=== PATIENT | male | born 1985 | race American Indian/Alaskan Native ===

== ENCOUNTER 2017-12-18 14:28 | Emergency (ER) | payer MEDICAID ==
[~2017-12-18] VITALS: Ht 180.3 cm; Wt 104.2 kg
[2017-12-18 14:42] VITALS: BP 143/72
== END 2017-12-18 16:29 | disposition home or self-care (01) ==
LOC: ER 14:28
DX: F19.10 Other psychoactive substance abuse, uncomplicated (principal); F10.10 Alcohol abuse, uncomplicated; F11.10 Opioid abuse, uncomplicated; Z88.1 Allergy status to other antibiotic agents; Z88.6 Allergy status to analgesic agent; Z88.8 Allergy status to other drugs, medicaments and biological substances; Z79.899 Other long term (current) drug therapy; Z56.0 Unemployment, unspecified
CPT/HCPCS: 99281

== ENCOUNTER 2021-07-13 19:23 | Emergency (ER) | payer MEDICAID ==
[~2021-07-13] VITALS: Ht 177.8 cm; Wt 97.7 kg
[2021-07-13 20:10] LABS: BASOPHILS # (AUTO) 0.1 X10'3 (0-0.2); BASOPHILS % (AUTO) 0.5 % (0-1); EOSINOPHILS # (AUTO) 0.1 X10'3 (0-0.9); EOSINOPHILS % (AUTO) 0.5 % (0-6); HEMATOCRIT 41.1 % (42.0-52.0); HEMOGLOBIN 14.1 g/dl (14.0-17.9); LYMPHOCYTES # (AUTO) 1.6 X10'3 (1.1-4.8); LYMPHOCYTES % (AUTO) 14.5 % (21-51); MEAN CORPUSCULAR HGB CONC 34.3 g/dL (33.0-36.5); MEAN CORPUSCULAR VOLUME 87.5 FL (78-98); MEAN PLATELET VOLUME 8.2 FL (7.4-10.4); MONOCYTES # (AUTO) 0.9 X10'3 (0-0.9); MONOCYTES % (AUTO) 7.8 % (2-12); NEUTROPHILS # (AUTO) 8.4 X10'3 (1.8-7.7); NEUTROPHILS % (AUTO) 76.7 % (42-75); PLATELET COUNT 297 X10'3 (140-440); RED CELL DISTRIBUTION WIDTH 12.6 % (11.5-14.5)
[2021-07-13 20:24] LABS: ALANINE AMINOTRANSFERASE 52 U/L (12-78); ALBUMIN 4.2 G/DL (3.4-5.0); ALBUMIN/GLOBULIN RATIO 1.4 (1.1-1.5); ALKALINE PHOSPHATASE 69 IU/L (46-116); ANION GAP 13 (8-16); ASPARTATE AMINO TRANSFERASE 52 U/L (10-37); BILIRUBIN,TOTAL 0.3 MG/DL (0.1-1.0); BLOOD UREA NITROGEN 30 MG/DL (7-18); BUN/CREATININE RATIO 22.9 (5.4-32.0); CALCIUM 8.7 MG/DL (8.5-10.1); CHLORIDE 109 MMOL/L (99-107); CREATININE 1.31 MG/DL (0.60-1.10); GLUCOSE 82 MG/DL (70-104); POTASSIUM 3.8 MMOL/L (3.5-5.1); SODIUM 144 MMOL/L (135-145); TOTAL CARBON DIOXIDE 22.2 MMOL/L (24-32); TOTAL PROTEIN 7.3 G/DL (6.4-8.2); eGFR 62 ML/MIN
[2021-07-13] MEDS ORDERED: normal saline 1000ml 1,000 ML IV ONE (20:40)
[2021-07-13 21:14] LABS: CLARITY,URINE CLOUDY (Clear); COLOR,URINE YELLOW (Yellow); GLUCOSE, URINE NEGATIVE (Neg); KETONES,URINE NEGATIVE (Neg); LEUKOCYTE ESTERASE ,URINE NEGATIVE (Neg); NITRITES, URINE NEGATIVE (Neg); OCCULT BLOOD,URINE NEGATIVE (Neg); PH,URINE 7.5 (4.8-8.0); PROTEIN,URINE NEGATIVE (Neg); URINE AMPHETAMINE SCREEN NEGATIVE (Neg); URINE BARBITUATE SCREEN NEGATIVE (Neg); URINE BENZODIAZEPINES SCREEN NEGATIVE (Neg); URINE CANNABINOID SCREEN NEGATIVE (Neg); URINE COCAINE SCREEN NEGATIVE (Neg); URINE METHADONE SCREEN NEGATIVE (Neg); URINE OPIATE SCREEN NEGATIVE (Neg); URINE PHENCYCLIDINE SCREEN NEGATIVE (Neg); UROBILINOGEN,URINE 0.2 E.U/dL (0.2-1.0)
[2021-07-13 21:15] LABS: UA COLLECTION TYPE URINAL
[2021-07-13 21:16] LABS: CREATINE KINASE 2192 U/L (39-308)
[2021-07-13 21:27] LABS: BACTERIA,URINE NONE SEEN /HPF (Neg); RBC,URINE NONE SEEN /HPF (0-2); SQUAMOUS EPITHELIAL CELL,UR FEW /LPF (FEW); WBC,URINE NONE SEEN /HPF (0-4)
[2021-07-13 21:28] LABS: AMORPHOUS PHOSPHATES 3+; MUCUS STRANDS FEW /LPF (Neg)
[2021-07-13 22:15] VITALS: BP 117/70
== END 2021-07-13 22:18 | disposition home or self-care (01) ==
LOC: ER 19:25
DX: R55 Syncope and collapse (principal); E86.0 Dehydration; F41.9 Anxiety disorder, unspecified; F11.90 Opioid use, unspecified, uncomplicated; Z98.890 Other specified postprocedural states; Z72.89 Other problems related to lifestyle; Z56.0 Unemployment, unspecified; Z88.1 Allergy status to other antibiotic agents; Z88.8 Allergy status to other drugs, medicaments and biological substances; Z88.6 Allergy status to analgesic agent
CPT/HCPCS: 36415; 71045; 80053; 80305; 81001; 82550; 83880; 84484; 85025; 93005; 96360; 99285; J7030

== ENCOUNTER 2022-05-25 00:49 | Emergency (ER) | payer MEDICAID ==
[~2022-05-25] VITALS: Ht 177.8 cm; Wt 106.8 kg
[2022-05-25 00:58] VITALS: BP 134/91
== END 2022-05-25 03:12 | disposition left against medical advice (07) ==
LOC: ER 00:49
DX: F10.239 Alcohol dependence with withdrawal, unspecified (principal); Z53.21 Procedure and treatment not carried out due to patient leaving prior to being seen by health care provider; Y90.9 Presence of alcohol in blood, level not specified

== ENCOUNTER 2024-07-24 12:46 | Inpatient (IN) | payer MEDICAID ==
[~2024-07-24] VITALS: Ht 177.8 cm; Wt 92.5 kg
[2024-07-24] MEDS ORDERED: LORazepam 2 mg/ml vial IV ONE (13:45)
[2024-07-24] MEDS ORDERED: ONDA-104 PO (13:51)
[2024-07-24] MEDS ORDERED: BUPR-561 PO (13:51)
[2024-07-24] MEDS ORDERED: SEMA1PEN5 (13:51)
[2024-07-24] MEDS ORDERED: FAMO20TA8 PO (13:51)
[2024-07-24] MEDS ORDERED: TADA-54 PO (13:51)
[2024-07-24] MEDS: normal saline 1000ml 1,000 ML IV ONE ×3 (13:59→20:21)
[2024-07-24] MEDS: diazepam inj 5 MG/ML inj. IV ONE ×2 (14:10→15:24)
[2024-07-24 14:48] LABS: BASOPHILS % (AUTO) 0.5 % (0-1); EOSINOPHILS # (AUTO) 0.1 X10'3 (0-0.9); EOSINOPHILS % (AUTO) 1.2 % (0-6); HEMATOCRIT 45.4 % (42.0-52.0); HEMOGLOBIN 15.6 g/dl (14.0-17.9); LYMPHOCYTES # (AUTO) 1.4 X10'3 (1.1-4.8); LYMPHOCYTES % (AUTO) 24.9 % (21-51); MEAN CORPUSCULAR HEMOGLOBIN 30.7 PG (27.0-31.0); MEAN CORPUSCULAR HGB CONC 34.4 g/dL (33.0-36.5); MEAN CORPUSCULAR VOLUME 89.3 FL (78-98); MEAN PLATELET VOLUME 8.1 FL (7.4-10.4); MONOCYTES # (AUTO) 0.3 X10'3 (0-0.9); MONOCYTES % (AUTO) 6.1 % (2-12); NEUTROPHILS # (AUTO) 3.7 X10'3 (1.8-7.7); NEUTROPHILS % (AUTO) 67.3 % (42-75); PLATELET COUNT 297 X10'3 (140-440); RED BLOOD COUNT 5.08 X10'6 (4.70-6.10); RED CELL DISTRIBUTION WIDTH 12.6 % (11.5-14.5); WHITE BLOOD COUNT 5.5 X10'3 (4.5-11.0)
[2024-07-24 15:07] LABS: ALANINE AMINOTRANSFERASE 52 U/L (12-78); ALBUMIN 4.1 G/DL (3.4-5.0); ALKALINE PHOSPHATASE 94 IU/L (46-116); ANION GAP 11 (8-16); ASPARTATE AMINO TRANSFERASE 60 U/L (10-37); BILIRUBIN,DIRECT 0.1 MG/DL (0-0.3); BILIRUBIN,TOTAL 0.4 MG/DL (0.1-1.0); BLOOD UREA NITROGEN 8 MG/DL (7-18); BUN/CREATININE RATIO 9.2 (10.0-20.0); CALCIUM 8.9 MG/DL (8.5-10.1); CHLORIDE 108 MMOL/L (99-107); CREATININE 0.87 MG/DL (0.60-1.10); ETHANOL 122 MG/DL (<10); GLUCOSE 84 MG/DL (70-104); LIPASE 140 U/L (16-77); MAGNESIUM 1.9 MG/DL (1.5-2.4); POTASSIUM 3.6 MMOL/L (3.5-5.1); SODIUM 143 MMOL/L (135-145); TOTAL PROTEIN 8.1 G/DL (6.4-8.2); eCRCL 118 ML/MIN; eGFR > 90 ML/MIN
[2024-07-24] MEDS: ondansetron/PF 4mg/2ml inj IV ONE (15:24)
[2024-07-24] MEDS: morphine 4 MG/ML inj SYRINge IV ONE ×3 (15:25→17:49)
[2024-07-24] MEDS ORDERED: iohexol 300mg/ml 100ml inj. ONE (16:18)
[2024-07-24] MEDS: proCHLORperazine 10 MG/2 ml inj IV ONE (17:47)
[2024-07-24] MEDS: diphenhydrAMINE 50 mg/ml inj IV ONE (17:48)
[2024-07-24] MEDS ORDERED: LORazepam 2 mg/ml vial IV PRN ×2 (18:10)
[2024-07-24] MEDS ORDERED: haloperidol lactate 5mg/ml inj IM PRN (18:10)
[2024-07-24] MEDS ORDERED: magnesium sulf-water 4G/100mL 100 ML IV PRN (18:10)
[2024-07-24] MEDS ORDERED: acetaminophen 325mg tablet PO PRN (18:10)
[2024-07-24] MEDS ORDERED: mag hydrox/Alum hydrox/simeth 30ml oral suspension PO PRN (18:10)
[2024-07-24] MEDS ORDERED: potassium Cl 20 mEq SR tablet PO PRN ×2 (18:10)
[2024-07-24] MEDS ORDERED: potassium Cl 40MEQ/1/2NS 520ml 520 ML IV PRN (18:10)
[2024-07-24] MEDS ORDERED: dextrose 50%-water 50ml dispensing syringe IV PRN (18:10)
[2024-07-24] MEDS ORDERED: magnesium sulf-water 2g/50mL 50 ML IV PRN (18:10)
[2024-07-24] MEDS ORDERED: ondansetron/PF 4mg/2ml inj IV PRN (18:10)
[2024-07-24] MEDS ORDERED: magnesium hydroxide 30ml (MOM) UD suspension PO PRN (18:10)
[2024-07-24 18:36] LABS: URINE AMPHETAMINE SCREEN NEGATIVE (Neg); URINE BARBITUATE SCREEN NEGATIVE (Neg); URINE BENZODIAZEPINES SCREEN NEGATIVE (Neg); URINE CANNABINOID SCREEN NEGATIVE (Neg); URINE COCAINE SCREEN NEGATIVE (Neg); URINE METHADONE SCREEN NEGATIVE (Neg); URINE OPIATE SCREEN POSITIVE (Neg); URINE PHENCYCLIDINE SCREEN NEGATIVE (Neg)
[2024-07-24] MEDS: thiamine 100mg/ml 2ml inj. IV SCH (18:45)
[2024-07-24] MEDS: morphine 2 MG/ML inj. syringe IV PRN ×2 (18:47→23:19)
[2024-07-24 19:39] LABS: PROTHROMBIN TIME 10.5 SECONDS (9.0-12.0)
[2024-07-24] MEDS: K and/or MAG REPLACEMENT MC SCH (20:00)
[2024-07-24] MEDS: heparin, porcine 5000 units/ml vial SQ SCH (20:00)
[2024-07-24] MEDS: folic acid 1mg/0.2ml inj IV SCH (20:10)
[2024-07-24] MEDS: ringers solution, lacted 1,000 ML IV SCH (20:22)
[2024-07-24] MEDS: HYDROmorphone 1 mg/ml syringe IV ONE (20:22)
[2024-07-24] MEDS: pantoprazole 40 MG vial IV SCH (20:23)
[2024-07-24 21:13] LABS: BILIRUBIN,URINE NEGATIVE (Neg); CLARITY,URINE CLEAR (Clear); COLOR,URINE YELLOW (Yellow); GLUCOSE, URINE NEGATIVE (Neg); KETONES,URINE NEGATIVE (Neg); LEUKOCYTE ESTERASE ,URINE NEGATIVE (Neg); NITRITES, URINE NEGATIVE (Neg); OCCULT BLOOD,URINE NEGATIVE (Neg); PROTEIN,URINE NEGATIVE (Neg); UROBILINOGEN,URINE 0.2 E.U/dL (0.2-1.0)
[2024-07-24 21:20] LABS: UA COLLECTION TYPE URINAL
[2024-07-24 21:42] VITALS: BP 134/86; PULSE 106; RESP 22; TEMP 98.9; O2SAT 99
[2024-07-24] MEDS: LORazepam 1 MG tablet PO PRN (23:03)
[2024-07-25 06:00] VITALS: BP 134/86; PULSE 77; RESP 9; TEMP 98.9; O2SAT 99
[2024-07-25 06:57] LABS: BASOPHILS % (AUTO) 0.5 % (0-1); EOSINOPHILS # (AUTO) 0.1 X10'3 (0-0.9); HEMATOCRIT 37.7 % (42.0-52.0); LYMPHOCYTES # (AUTO) 1.2 X10'3 (1.1-4.8); LYMPHOCYTES % (AUTO) 20.6 % (21-51); MEAN CORPUSCULAR HEMOGLOBIN 30.8 PG (27.0-31.0); MEAN CORPUSCULAR HGB CONC 34.5 g/dL (33.0-36.5); MEAN CORPUSCULAR VOLUME 89.3 FL (78-98); MEAN PLATELET VOLUME 8.3 FL (7.4-10.4); MONOCYTES # (AUTO) 0.4 X10'3 (0-0.9); MONOCYTES % (AUTO) 6.4 % (2-12); NEUTROPHILS % (AUTO) 70.5 % (42-75); PLATELET COUNT 198 X10'3 (140-440); RED BLOOD COUNT 4.22 X10'6 (4.70-6.10); RED CELL DISTRIBUTION WIDTH 12.6 % (11.5-14.5); WHITE BLOOD COUNT 5.7 X10'3 (4.5-11.0)
[2024-07-25 07:09] LABS: ALANINE AMINOTRANSFERASE 46 U/L (12-78); ALBUMIN 3.1 G/DL (3.4-5.0); ALKALINE PHOSPHATASE 88 IU/L (46-116); ANION GAP 4 (8-16); ASPARTATE AMINO TRANSFERASE 45 U/L (10-37); BILIRUBIN,TOTAL 1.1 MG/DL (0.1-1.0); BLOOD UREA NITROGEN 7 MG/DL (7-18); BUN/CREATININE RATIO 8.5 (10.0-20.0); CALCIUM 7.9 MG/DL (8.5-10.1); CHLORIDE 105 MMOL/L (99-107); CHOL/HDL RATIO 2.4 (0.00-4.99); CHOLESTEROL 137 MG/DL (0-200); CREATININE 0.82 MG/DL (0.60-1.10); GLUCOSE 83 MG/DL (70-104); HDL CHOLESTEROL 58 MG/DL (35-60); LDL CHOLESTEROL 67 MG/DL (50-100); LIPASE 71 U/L (16-77); MAGNESIUM 1.4 MG/DL (1.5-2.4); POTASSIUM 3.5 MMOL/L (3.5-5.1); SODIUM 140 MMOL/L (135-145); TOTAL CARBON DIOXIDE 30.7 MMOL/L (24-32); TOTAL PROTEIN 6.2 G/DL (6.4-8.2); TRIGLYCERIDES 76 MG/DL (20-135); eCRCL 125 ML/MIN; eGFR > 90 ML/MIN
[2024-07-25] MEDS ORDERED: HYDROcodone/acetaminophen 10/325mg tab PO PRN (08:40)
[2024-07-25] MEDS: BUPROPION HCL 150MG XL 24 HR 150 MG TAB PO SCH (09:42)
[2024-07-25] MEDS: HYDROcodone/acetaminophen 10/325mg tab PO ONE (09:43)
[2024-07-25 11:00] VITALS: BP 128/79; PULSE 77; RESP 16; TEMP 97.2; O2SAT 99
[2024-07-25] MEDS: magnesium Cl slow-release 64mg tablet PO PRN (11:04)
[2024-07-25] MEDS ORDERED: thiamine tablet PO (12:32)
[2024-07-25] MEDS ORDERED: MULT-1085 PO (12:32)
[2024-07-25] MEDS ORDERED: FOLI1TAB27 PO (12:32)
[2024-07-25] MEDS ORDERED: HYDR-3965 PO (14:08)
[2024-07-25] MEDS ORDERED: LORA-269 PO (14:08)
[2024-07-25] MEDS ORDERED: THIA50TA10 PO (14:08)
[2024-07-29] MEDS ORDERED: folic acid 1mg tablet PO SCH (08:00)
[2024-07-29] MEDS ORDERED: thiamine 100mg tablet PO SCH (08:00)
== END 2024-07-25 13:31 | disposition home or self-care (01) | DRG 282 ==
LOC: ER 12:47 → ED HOLD 18:06 → PCU 3S 21:04
PROVIDERS: ADMIT Family Medicine; ATTEND Family Medicine
PROC: BW211ZZ Computerized Tomography (CT Scan) of Abdomen and Pelvis using Low Osmolar Contrast (ICD-10-PCS; principal; 2024-07-24)
DX: K85.20 Alcohol induced acute pancreatitis without necrosis or infection (principal); F10.920 Alcohol use, unspecified with intoxication, uncomplicated; F41.9 Anxiety disorder, unspecified; M54.9 Dorsalgia, unspecified; Y90.9 Presence of alcohol in blood, level not specified; Z79.899 Other long term (current) drug therapy; Z88.8 Allergy status to other drugs, medicaments and biological substances
CPT/HCPCS: 36415; 71045; 74177; 80048; 80053; 80061; 80076; 80305; 80320; 81003; 82948; 83036; 83605; 83690; 83735; 85025; 85610; 87081; 99285; G0378; J0780; J1171; J1200; J1644; J2270; J2405; J2470; J3360; J3411; J3490; J7030; J7120; Q9967

== ENCOUNTER 2024-08-20 18:36 | Emergency (ER) | payer MEDICAID ==
[~2024-08-20] VITALS: Ht 177.8 cm; Wt 95.5 kg
[~2024-08-20 18:36] MED LIST: BUPR-726 PO; FAMO20TA8 PO; FOLI1TAB27 PO; HYDR-3965 PO; LORA-269 PO; MULT-1085 PO; ONDA-104 PO; TADA5TAB14 PO; THIA50TA10 PO; thiamine tablet PO
[2024-08-20 18:37] VITALS: TEMP 97.9
[2024-08-20 18:45] VITALS: BP 129/91; PULSE 87; RESP 16; O2SAT 98
== END 2024-08-20 19:00 ==
LOC: ER 18:36
DX: Z04.1 Encounter for examination and observation following transport accident (principal); Z88.1 Allergy status to other antibiotic agents; Z88.5 Allergy status to narcotic agent; Z88.8 Allergy status to other drugs, medicaments and biological substances; V89.2XXA Person injured in unspecified motor-vehicle accident, traffic, initial encounter; Y93.89 Activity, other specified; Y92.410 Unspecified street and highway as the place of occurrence of the external cause; Y99.8 Other external cause status
CPT/HCPCS: 99283